=== PATIENT | female | born 1955 | race Caucasian/White ===

== ENCOUNTER 2017-12-04 14:03 | Emergency (ER) | payer MEDICARE ==
[~2017-12-04] VITALS: Ht 162.6 cm; Wt 74.8 kg
[2017-12-04 14:16] VITALS: BP 131/86
[2017-12-04] MEDS ORDERED: KETOROLAC 60 MG/2 ML VIAL IM ONE (15:15)
[2017-12-04 15:35] VITALS: BP 131/86
== END 2017-12-04 15:35 | disposition home or self-care (01) ==
LOC: MED 14:03
DX: M54.2 Cervicalgia (principal); R51 Headache; L29.9 Pruritus, unspecified; I10 Essential (primary) hypertension; Z90.49 Acquired absence of other specified parts of digestive tract
CPT/HCPCS: 96372; 99283; J1885

== ENCOUNTER 2021-03-06 14:54 | Emergency (ER) | payer MEDICARE ==
[~2021-03-06] VITALS: Ht 170.2 cm; Wt 78.5 kg
[2021-03-06 15:15] VITALS: BP 128/80
[2021-03-06 17:14] LABS: BASOPHILS % (AUTO) 0.5 % (0.0-2.0); EOSINOPHILS # (AUTO) 0.2 K/uL (0-0.4); EOSINOPHILS % (AUTO) 3.5 % (0.0-4.0); HEMATOCRIT 40.1 % (36-48); HEMOGLOBIN 13.3 g/dL (12.0-16.0); LYMPHOCYTES % (AUTO) 21.3 % (20.5-51.1); MEAN CORPUSCULAR HEMOGLOBIN 27 pg (27-31); MEAN CORPUSCULAR HGB CONC 33 g/dL (33-37); MEAN CORPUSCULAR VOLUME 81.5 fL (80-94); MONOCYTES # (AUTO) 0.4 K/uL (0.8-1.0); MONOCYTES % (AUTO) 9.4 % (1.7-9.3); NEUTROPHILS # (AUTO) 3.1 K/uL (1.8-7.7); NEUTROPHILS % (AUTO) 65.3 % (42.2-75.2); PLATELET COUNT (AUTO) 266 K/uL (140-450); RED BLOOD CELL COUNT(AUTO) 4.92 MIL/uL (4.20-5.40); RED CELL DISTRIBUTION WIDTH 14.4 % (11.6-13.7); WHITE BLOOD COUNT (AUTO) 4.7 K/uL (4.8-10.8)
[2021-03-06 17:33] LABS: ALBUMIN 3.7 g/dL (3.4-5.0); ANION GAP 15.6 (8-16); CARBON DIOXIDE 24.9 mmol/L (21-32); CREATININE 0.9 mg/dL (0.6-1.3); POTASSIUM 3.5 mmol/L (3.5-5.1); TOTAL BILIRUBIN 0.3 mg/dL (0.0-1.0)
[2021-03-06] MEDS ORDERED: GABA300C PO ×2 (19:02→19:08)
[2021-03-06 19:08] VITALS: BP 125/77
--- NOTE | 2021-03-06 19:08 | NUR ---
NO NURSING INTERVENTIONS IMPLEMENTED. Patient discharged with v/s stable. Written and verbal after care instructions given and explained. Patient alert, oriented and verbalized understanding of instructions. Ambulatory with steady gait. All questions addressed prior to discharge. ID band removed. Patient advised to follow up with PMD. Rx of GABAPENTIN given. Patient educated on indication of medication including possible reaction and side effects. Opportunity to ask questions provided and answered.
== END 2021-03-06 19:08 | disposition home or self-care (01) ==
LOC: MED 14:54
DX: M79.604 Pain in right leg (principal); M79.605 Pain in left leg; G62.9 Polyneuropathy, unspecified; Z79.899 Other long term (current) drug therapy
CPT/HCPCS: 36415; 80053; 81002; 82553; 85025; 99283

== ENCOUNTER 2022-01-12 19:26 | Emergency (ER) | payer MEDICARE, OTHER ==
[~2022-01-12] VITALS: Ht 170.2 cm; Wt 76.7 kg
[~2022-01-12 19:26] MED LIST: GABA300C PO
[2022-01-12 19:46] VITALS: BP 124/66
--- NOTE | 2022-01-12 20:30 | NUR ---
PT AMBULATED TO CHAIR B, PT C/O LEFT KNEE PAIN RADIATES DOWN HER LEG, +PMSC, PT STATES SHE HAD A OLD INJURY AND EVER SINCE HER KNEE HAS HURT, PT TAKING IBUPROFEN THREE TIMES A DAY WITH NO RELIEF.
[2022-01-12] MEDS ORDERED: NAPR-1704 PO (20:55)
--- NOTE | 2022-01-12 21:39 | NUR ---
PT TAKEN TO XRAY VIA WHEELCHAIR
--- NOTE | 2022-01-12 21:47 | NUR ---
PT RETURNED FROM XRAY VIA WHEELCHAIR, PLACED BACK IN CHAIR B
--- NOTE | 2022-01-12 21:55 | NUR ---
Note marianolarry in EDM - 01/12/22 at 2156 by [id number] Patient discharged with v/s stable. Written and verbal after care instructions given and explained. Patient alert, oriented and verbalized understanding of instructions. Ambulatory with steady gait. All questions addressed prior to discharge. ID band removed. Patient advised to follow up with PMD. Rx OF NAPROXEN given. Patient educated on indication of medication including possible reaction and side effects. Opportunity to ask questions provided and answered.
[2022-01-12 22:35] VITALS: BP 121/60
== END 2022-01-12 22:30 | disposition home or self-care (01) ==
LOC: MED 19:26
DX: M25.562 Pain in left knee (principal)
CPT/HCPCS: 73562; 99283